=== PATIENT | female | born 1995 ===

== ENCOUNTER → 2018-02-09 | Outpatient (CLI) | payer OTHER | END | disposition home or self-care (01) | LOC: LABWHC1 08:31 | PROVIDERS: ATTEND Obstetrics & Gynecology | DX: Z34.81 Encounter for supervision of other normal pregnancy, first trimester (principal); Z3A.00 Weeks of gestation of pregnancy not specified | CPT/HCPCS: 36415; 84702 ==

== ENCOUNTER → 2018-03-20 | Outpatient (CLI) | payer OTHER ==
[2018-03-20 16:32] LABS: HGB 13.5 gm/dL (11.4-16.0); MCH 30.9 pg (25.0-35.0); MCHC 34.6 g/dL (31.0-37.0); MCV 89.3 fL (80.0-100.0); Mean Platelet Volume 7.5; Platelet Count 202 k/uL (150-450); RBC 4.37 m/uL (3.80-5.40); RDW 11.7 % (11.5-15.5); WBC 10.8 k/uL (3.8-10.6)
[2018-03-20 16:49] LABS: Glucose 82 mg/dL (74-99)
[2018-03-21 06:21] LABS: Toxoplasma Antibody (IgG) <3.0 IU/mL (<7.2); Toxoplasma Antibody (IgM) <3.0 AU/mL (<8.0)
--- NOTE | 2018-03-21 07:06 | US ---
EXAMINATION TYPE: Transabdominal DATE OF EXAM: 02/13/18 COMPARISON: NONE CLINICAL HISTORY: Z36 Confirm Dates; G1, prior smoker EXAM PERFORMED: Transabdominal (TA) EXAM MEASUREMENTS: GESTATIONAL AGE / DATING Physician Established: Not yet established Dates by LMP: (11 weeks/2 days) EDC: 10/07/2018 Dates by First Scan: No previous this is first scan Dates by Current Scan for: 8 weeks/1 day) EDC: 10/29/2018 MATERNAL ANATOMY Uterus: 10.3 x 6.2 x 5.5cm Right Ovary: 2.6 x 3.0 x 1.9cm Left Ovary: 3.7 x 3.1 x 3.0cm Post CDS / Adnexa: wnl Presence of free fluid: no Presence of corpus luteal cyst: within the left ovary = 3.3 x 2.4 x 2.5cm with peripheral ring of col or flow. Presence of subchorionic bleed: no GESTATION / SURVEY CRL: 1.7cm (8 weeks/1 day) Yolk Sac (normal less than 6mm): 4.0mm Heart Rate: 172 bpm Rhythm: Normal IUP: Live IUP Date of LMP: 12/31/2017 Beta HcG (if available): NA Single, live IUP, 8 weeks/1 day, EDC: 10/29/2018, HR 172bpm. IMPRESSION: Single live intrauterine with a sonographic age of 8 weeks and 1 day and estimated date of delivery of 10/19/2018. Note the sonographic age is discordant with the provided menstrual age.
[2018-03-21 21:15] LABS: HIV AB P24 Non-Reactive (Non-Reactive); HIV P24 AG Non-Reactive (Non-Reactive)
== END | disposition home or self-care (01) ==
LOC: RADUSWWP 15:38
PROVIDERS: ATTEND Obstetrics & Gynecology
DX: O26.811 Pregnancy related exhaustion and fatigue, first trimester (principal); Z3A.08 8 weeks gestation of pregnancy
CPT/HCPCS: 36415; 76801; 82565; 82947; 85027; 86762; 86777; 86778; 86780; 86850; 86900; 86901; 87340; 87390

== ENCOUNTER → 2018-05-15 | Outpatient (CLI) | payer OTHER | END | disposition home or self-care (01) | LOC: LABWHC1 09:53 | PROVIDERS: ATTEND Obstetrics & Gynecology | DX: Z34.81 Encounter for supervision of other normal pregnancy, first trimester (principal) | CPT/HCPCS: 36415 ==

== ENCOUNTER 2018-10-06 09:05 | Outpatient (CLI) | payer OTHER ==
[2018-10-06 09:57] VITALS: BP 111/75; PULSE 92; RESP 18; TEMP 98
--- NOTE | 2018-10-06 11:38 | P.MSEPDOC ---
Presenting Problems - Arrival Data Date of Arrival on Unit: 10/06/18 Time of Arrival on Unit: 09:05 Mode of Transport: Ambulatory - Complaint OB-Reason for Admission/Chief Complaint: Other Comment: Constipation x3 weeks Medical History - Information : 1 Para: 0 Term: 0 : 0 Abortions: Spontaneous or Elective: 0 Number of Living Children: 0 - Gestational Age Gestational Age by LINDA (wks/days): 36 Weeks and 5 Days - History Complications: Hx. Substance Abuse Comment: marijuana Review of Systems - Review of Systems Constitutional: No problems Breast: No problems ENT: No problems Cardiovascular: No problems Respiratory: No problems Gastrointestinal: Constipation Genitourinary: No problems Musculoskeletal: No problems Neurological: No problems Skin: No problems Vital Signs - Temperature Temperature: 98.0 F Temperature Source: Temporal Artery Scan - Pulse Right Pulse Oximetery Pulse Rate: 92 Pulse Assessment Method: Pulse Oximetry - Respirations Respiratory Rate: 18 Oxygen Delivery Method: Room Air O2 Sat by Pulse Oximetry: 99 - Blood Pressure Right Arm Blood Pressure: 111/75 Blood Pressure Mean: 87 Blood Pressure Source: Automatic Cuff Medical Screen Scoring (Pre) - Cervical Exam Dilation: Exam Deferred Effacement: Exam Deferred - Uterine Contractions Frequency: > 5 minutes apart = 1 Duration: N/A Intensity: N/A - Maternal Vital Signs Maternal Temperature: N/A Maternal Blood Pressure: N/A Signs of Preeclampsia: N/A Maternal Respirations: N/A - Pain Assessment Pain Location and Character: Lower, Abdomen Pain Scale Used: Numeric (1 - 10) Pain Intensity: 7 Pain Management Goal: 2 Pain Description: *Acute, Sore Pain Radiation Location: none Pain Frequency: Constant Pain Duration: 3 Pain Duration Units: weeks Pain Behavior: Moving Slowly, Vocalization Effects of Pain: none Pain Aggravating Factors: None Pharmacological Interventions: Discuss Pain Med Options - Maternal Trauma Maternal Trauma: N/A - Assessment Baseline FHR: 140 Heart Rate - NICHD Category: Category I (Normal) = 0 NST: Reactive Position: N/A Station: N/A - Total Score Total Score (Pre): 1 - Level of Risk Level of Risk: Low (0-5) Physician Notification (Pre) - Physician Notified Physician Notified Date: 10/06/18 Physician Notified Time: 09:45 Physician/Practitioner Notifed:: Dr Harris Spoke With: Dr Harris New Order Received: Yes - Notification Comment Comment: Pt here for constipation x3 weeks. pt cleared obstetrically, pt to er for further evaluation per Dr Harris. Disposition - Disposition OB Disposition: Discharge to home, Written follow up instructions reviewed Discharge Date: 10/06/18 Discharge Time: 09:48 I agree with the RN Medical Screening Exam: Yes Risk & Benefit of care provided described in d/c instruction: Yes Diagnosis: CONSTIPATION, UNSPECIFIED
== END 2018-10-06 09:48 | disposition home or self-care (01) ==
LOC: FBPOP 09:05
PROVIDERS: ATTEND Obstetrics & Gynecology
DX: O99.611 Diseases of the digestive system complicating pregnancy, first trimester (principal); K59.00 Constipation, unspecified; Z3A.36 36 weeks gestation of pregnancy
CPT/HCPCS: 59025; G0463; 99213

== ENCOUNTER 2018-10-06 09:53 | Emergency (ER) | payer OTHER ==
[2018-10-06 10:16] VITALS: BP 100/65; PULSE 63; RESP 18; TEMP 98.1
[2018-10-06 10:40] LABS: Appearance,Urine Clear (Clear); Bilirubin,Urine Negative (Negative); Blood,Urine Negative (Negative); Color,Urine Light Yellow; Glucose,Urine (UA) Negative (Negative); Ketones,Urine Negative (Negative); Leukocyte Esterase,Urine Negative (Negative); Nitrite,Urine Negative (Negative); Protein,Urine Negative (Negative); Specific Gravity,Urine 1.009 (1.001-1.035); Urobilinogen,Urine <2.0 mg/dL (<2.0)
--- NOTE | 2018-10-06 10:55 | ED ---
General Adult HPI - General Chief complaint: Abdominal Pain Stated complaint: bowel problems Source: patient Mode of arrival: ambulatory Limitations: no limitations - History of Present Illness Initial comments: Dictation was produced using [employer] dictation software. please excuse any grammatical, word or spelling errors. Chief Complaint: 23-year-old female who is approximately 36 weeks gestation presents with constipation. History of Present Illness: Patient is a 23-year-old female who is approximately 36 weeks gestation presents with constipation. Patient has been having hard small stools past 3 weeks. She has not had a normal bowel movement in approximately 3 weeks. Her constipation has been evaluated by her JOB RECRUITER. She has tried enemas and other oral agents in order to alleviate her symptoms however with persistent symptoms. Patient feels nauseous however no episodes of emesis. She does complain of pain to the bilateral flank regions. She was initially evaluated and labor and delivery were baby was evaluated and found to be stable. The ROS documented in this emergency department record has been reviewed and confirmed by me. Those systems with pertinent positive or negative responses have been documented in the HPI. All other systems are other negative and/or noncontributory. - Related Data Home Medications Medication Instructions Recorded Confirmed Ranitidine HCl [Zantac] 150 mg PO HS 10/06/18 10/06/18 Allergies Allergy/AdvReac Type Severity Reaction Status Date / Time No Known Allergies Allergy Verified 10/06/18 10:16 Review of Systems ROS Statement: Those systems with pertinent positive or pertinent negative responses have been documented in the HPI. ROS Other: All systems not noted in ROS Statement are negative. Past Medical History Additional Past Medical History / Comment(s): IBS, Chiari Malformation History of Any Multi-Drug Resistant Organisms: None Reported Past Surgical History: Cholecystectomy Past Psychological History: No Psychological Hx Reported Smoking Status: Never smoker Past Alcohol Use History: None Reported Past Drug Use History: None Reported General Exam - General Exam Comments Initial Comments: PHYSICAL EXAM: General Impression: Alert and oriented x3, not in acute distress HEENT: Normocephalic atraumatic, extra-ocular movements intact, pupils equal and reactive to light bilaterally, mucous membranes moist. Cardiovascular: Heart regular rate and rhythm, S1&S2 audible, no murmurs, rubs or gallops Chest: Lungs clear to auscultation bilaterally, no rhonchi, no wheeze, no rales Abdomen: Bowel sounds present, abdomen soft, non-tender, non-distended, no organomegaly, palpable uterine fundus at appropriate gestational age Musculoskeletal: Pulses present and equal in all extremities, no peripheral edema Motor: Power 5/5 bilaterally, no focal deficits noted Neurological: CN II-XII grossly intact, no focal motor or sensory deficits noted Skin: Intact with no visualized rashes Psych: Normal affect and mood Limitations: no limitations Course Vital Signs 10/06/18 10:11 Temperature 98.1 F Pulse Rate 63 Respiratory 18 Rate Blood Pressure 100/65 O2 Sat by Pulse 98 Oximetry Medical Decision Making - Medical Decision Making ED course: 23-year-old female with chief complaint of constipation. She is allegedly 36 weeks vital signs upon arrival are within acceptable limits. While waiting laboratory workup patient's water broke. There is concern that patient has rupture membranes. She is transferred back up to labor and delivery for further management. - Lab Data Lab Results 10/06/18 10/06/18 Range/Units 10:29 10:29 Urine Color Light Yellow Urine Appearance Clear (Clear) Urine pH 7.0 (5.0-8.0) Ur Specific [place] 1.009 (1.001-1.035) Urine Protein Negative (Negative) Urine Glucose (UA) Negative (Negative) Urine Ketones Negative (Negative) Urine Blood Negative (Negative) Urine Nitrite Negative (Negative) Urine Bilirubin Negative (Negative) Urine Urobilinogen <2.0 (<2.0) mg/dL Ur Leukocyte Esterase Negative (Negative) Urine HCG, Qual Detected (Not Detectd) Disposition Clinical Impression: Rupture of membranes with clear amniotic fluid Disposition: OTHER INSTITUTION NOT DEFINED Condition: Fair Is patient prescribed a controlled substance at d/c from ED?: No Referrals: Farhad Mcrae MD [Primary Care Provider] - 1-2 days Time of Disposition: 12:22 - Out of Hospital Transfer - Req. Specs Out of Hospital Transfer - Requested Specifics: Other Emergency Center (in hospital labor and delivery)
[2018-10-06 12:35] LABS: Anion Gap 6 mmol/L; Blood Urea Nitrogen 7 mg/dL (7-17); Calcium 9.1 mg/dL (8.4-10.2); Carbon Dioxide 20 mmol/L (22-30); Chloride 112 mmol/L (98-107); Glucose 67 mg/dL (74-99); Magnesium 1.8 mg/dL (1.6-2.3); Potassium 4.1 mmol/L (3.5-5.1); Sodium 138 mmol/L (137-145)
== END 2018-10-06 12:27 | disposition short-term general hospital (02) ==
LOC: EC 09:53
DX: O42.913 Preterm premature rupture of membranes, unspecified as to length of time between rupture and onset of labor, third trimester (principal); O99.613 Diseases of the digestive system complicating pregnancy, third trimester; K59.00 Constipation, unspecified; K58.9 Irritable bowel syndrome, unspecified; O99.89 Other specified diseases and conditions complicating pregnancy, childbirth and the puerperium; Q07.00 Arnold-Chiari syndrome without spina bifida or hydrocephalus; Z79.899 Other long term (current) drug therapy; Z90.49 Acquired absence of other specified parts of digestive tract; Z3A.36 36 weeks gestation of pregnancy
CPT/HCPCS: 99284 ×2; 59025; 36415; 80048; 83735; 81003; 81025; G0463; 99213

== ENCOUNTER 2018-10-06 12:23 | Outpatient (CLI) | payer OTHER ==
[2018-10-06] MEDS ORDERED: NA PHOS,M-B/NA PHOS,DI-BA 133 ML ENEMA RECTAL ONE (13:17)
[2018-10-06 14:05] VITALS: BP 118/82; PULSE 57; RESP 18
--- NOTE | 2018-10-07 12:45 | P.MSEPDOC ---
Presenting Problems - Arrival Data Date of Arrival on Unit: 10/06/18 Time of Arrival on Unit: 12:23 Mode of Transport: Ambulatory - Complaint OB-Reason for Admission/Chief Complaint: Rule Out SROM Comment: 1210 possible SROM clear fluid pt states stood up when in ER and the bed had a large wet spot. Medical History - Information : 1 Para: 0 Term: 0 : 0 Abortions: Spontaneous or Elective: 0 Number of Living Children: 0 - Gestational Age Gestational Age by LINDA (wks/days): 36 Weeks and 5 Days Review of Systems - Review of Systems Constitutional: No problems Breast: No problems ENT: No problems Cardiovascular: No problems Respiratory: No problems Gastrointestinal: Constipation Genitourinary: No problems Musculoskeletal: No problems Neurological: No problems Skin: No problems Vital Signs - Pulse Right Pulse Oximetery Pulse Rate: 57 Pulse Assessment Method: Automatic Cuff - Respirations Respiratory Rate: 18 Oxygen Delivery Method: Room Air - Blood Pressure Right Arm Blood Pressure: 118/82 Blood Pressure Mean: 94 Blood Pressure Source: Automatic Cuff Medical Screen Scoring (Pre) - Cervical Exam Dilation: 1-3 cm = 1 Effacement: More than 50% = 2 Membranes: Intact - Uterine Contractions Frequency: > 5 minutes apart = 1 Duration: N/A Intensity: N/A - Maternal Vital Signs Maternal Temperature: N/A Maternal Blood Pressure: N/A Signs of Preeclampsia: N/A Maternal Respirations: N/A - Pain Assessment Pain Location and Character: Abdomen Pain Scale Used: Numeric (1 - 10) Pain Intensity: 7 Pain Management Goal: 2 Pain Description: *Acute, Sore Pain Radiation Location: pt states due to constipation Pain Frequency: Constant Pain Duration: 3 Pain Duration Units: weeks Pain Behavior: Moving Slowly Effects of Pain: none Pain Aggravating Factors: None Pharmacological Interventions: Discuss Pain Med Options Non-Pharmacological Interventions: Reduce Environmental Stimuli - Maternal Trauma Maternal Trauma: N/A - Assessment Baseline FHR: 140 Heart Rate - NICHD Category: Category I (Normal) = 0 NST: Reactive Position: N/A Station: N/A - Total Score Total Score (Pre): 4 - Level of Risk Level of Risk: Low (0-5) Physician Notification (Pre) - Physician Notified Physician Notified Date: 10/06/18 Physician Notified Time: 13:03 Physician/Practitioner Notifed:: Dr Harris Spoke With: Dr Harris New Order Received: Yes - Notification Comment Comment: pt returned from ER for possible SROM. Disposition - Disposition OB Disposition: Discharge to home Discharge Date: 10/06/18 Discharge Time: 13:50 I agree with the RN Medical Screening Exam: Yes Risk & Benefit of care provided described in d/c instruction: Yes Diagnosis: FALSE LABOR BEFORE 37 COMPLETED WEEKS OF GEST, THIRD TRI
== END 2018-10-06 13:50 | disposition home or self-care (01) ==
LOC: FBPOP 12:23
PROVIDERS: ATTEND Obstetrics & Gynecology
DX: O47.03 False labor before 37 completed weeks of gestation, third trimester (principal); Z3A.36 36 weeks gestation of pregnancy
CPT/HCPCS: 59025; G0463; 99213

== ENCOUNTER 2018-10-23 05:40 | Inpatient (IN) | payer OTHER ==
[2018-10-23] MEDS ORDERED: LACTATED RINGERS 1,000 ML IV ONE (05:56)
[2018-10-23] MEDS ORDERED: CITRIC ACID-SODIUM CITRATE 15 ML CUP PO ONE (05:56)
[2018-10-23] MEDS ORDERED: ceFAZolin IN SWFI 2 GM/20 ML SYRINGE IVP ONE (05:56)
[2018-10-23 06:29] LABS: Basophils % (A) 0 %; Eosinophils % (A) 0 %; HGB 12.1 gm/dL (11.4-16.0); Lymphocytes # (A) 1.5 k/uL (1.0-4.8); Lymphocytes % (A) 14 %; MCH 31.2 pg (25.0-35.0); MCHC 33.7 g/dL (31.0-37.0); MCV 92.4 fL (80.0-100.0); Mean Platelet Volume 6.9; Monocytes # (A) 0.5 k/uL (0-1.0); Monocytes % (A) 5 %; Neutrophils # (A) 8.1 k/uL (1.3-7.7); Neutrophils % (A) 79 %; Platelet Count 217 k/uL (150-450); RBC 3.89 m/uL (3.80-5.40); RDW 12.3 % (11.5-15.5); WBC 10.2 k/uL (3.8-10.6)
[2018-10-23 06:31] VITALS: BMI 32.5
[2018-10-23] MEDS ORDERED: SUCCINYLCHOLINE CHLORIDE 100 MG/5 ML SYR IV ONE (08:03)
[2018-10-23] MEDS ORDERED: ONDANSETRON 4 MG/2 ML VIAL ONE (08:03)
[2018-10-23] MEDS ORDERED: fentaNYL (PF) 50 MCG/ML 2 ML AMP ONE (08:03)
[2018-10-23] MEDS ORDERED: OXYTOCIN 10 UNIT/ML 1 ML VIAL ONE (08:03)
[2018-10-23] MEDS ORDERED: KETOROLAC 30 MG/ML 1 ML VIAL ONE (08:03)
[2018-10-23] MEDS ORDERED: PROPOFOL 10 MG/ML 20 ML VIAL IV ONE (08:03)
[2018-10-23] MEDS ORDERED: DEXAMETHASONE SOD PHOS (MDV) 100 MG/10 ML VIAL ONE (08:03)
[2018-10-23] MEDS ORDERED: MIDAZOLAM 2 MG/2 ML VIAL ONE (08:03)
[2018-10-23] MEDS ORDERED: NALOXONE 0.4 MG/ML 1 ML VIAL IV PRN ×2 (08:32→08:58)
[2018-10-23] MEDS ORDERED: ZOLPIDEM 5 MG TAB PO PRN (08:32)
[2018-10-23] MEDS ORDERED: KETOROLAC 30 MG/ML 1 ML VIAL IVP PRN (08:32)
[2018-10-23] MEDS ORDERED: diphenhydrAMINE 50 MG CAP PO PRN (08:32)
[2018-10-23] MEDS ORDERED: diphenhydrAMINE 25 MG CAP PO PRN (08:32)
[2018-10-23] MEDS ORDERED: SIMETHICONE 80 MG CHEWABLE PO PRN (08:32)
[2018-10-23] MEDS ORDERED: ONDANSETRON 4 MG/2 ML VIAL IVP PRN ×2 (08:32→08:59)
[2018-10-23] MEDS ORDERED: ACETAMINOPHEN TAB 325 MG TAB PO PRN (08:32)
[2018-10-23] MEDS ORDERED: diphenhydrAMINE 50 MG/ML 1 ML VIAL IVP PRN ×2 (08:32)
[2018-10-23] MEDS ORDERED: METOCLOPRAMIDE 5 MG/ML 2 ML VIAL IVP PRN (08:32)
--- NOTE | 2018-10-23 08:36 | P.HPOB ---
History of Present Illness H&P Date: 10/23/18 Chief Complaint: April at term: Arnold-Chiari malformation Patient is a 23-year-old at 39 weeks gestation who arrives for primary section under general anesthetic due to Arnold-Chiari malformation. Patient has a history of Arnold-Chiari formation and seizure disorder. She is seen neurologist throughout much of her life due to same, however she is seen them sporadically. She had appointments with several neurologist during the course of some of which she was unable to make appointments with. Ultimately a discussion with one of the neurologists that she sees lead to a decision to move forward with a under general anesthetic due to her Arnold-Chiari malformation which was not deemed stable. She understood risks of brainstem herniation should she pushed or have a spinal epidural anesthetic therefore a general anesthetic was scheduled. She did meet with anesthesia and all questions were answered for her prior to proceeding to the operating room. Risks also included but were not limited to bleeding and infection as well as damage to bladder, bowel, vascular injuries, nerve injuries and ureteral damage. She also uses marijuana daily. Multiple discussions were held with the patient trying to get her to quit. However she declines and states that she is clinically to smoke marijuana throughout the . Urine drug screens were positive for same. Past Medical History Past Medical History: GERD/Reflux Additional Past Medical History / Comment(s): ARNOLD CHIARI MALFORMATION- STATES IT CAUSES TINGLING IN HER LIMBS, VISION CHANGES, HEADACHE AND BACK PAIN. , STATES IBS WITH SEVERE CONSTIPATION., STATES DOUBLE URETERS ON THE RIGHT WITH HX OF UTI'S. - SCHEDULED History of Any Multi-Drug Resistant Organisms: None Reported Past Surgical History: Cholecystectomy Additional Past Surgical History / Comment(s): COLONOSCOPY Past Anesthesia/Blood Transfusion Reactions: No Reported Reaction, Family History of Problems w/ Anesthesia Additional Past Anesthesia/Blood Transfusion Reaction / Comment(s): STATES HER MOTHER STOPPED BREATHING Past Psychological History: Anxiety, Depression Smoking Status: Former smoker Past Alcohol Use History: None Reported Additional Past Alcohol Use History / Comment(s): QUIT SMOKING 3 YRS AGO., SMOKED FOR 1 YEAR. Past Drug Use History: None Reported - Past Family History Mother Family Medical History: No Reported History Medications and Allergies Home Medications Medication Instructions Recorded Confirmed Type Ranitidine HCl [Zantac] 150 mg PO BID PRN 10/06/18 10/23/18 History Stool Softner Otc 2 tab PO DAILY PRN 10/22/18 10/23/18 History Allergies Allergy/AdvReac Type Severity Reaction Status Date / Time No Known Allergies Allergy Verified 10/22/18 15:05 Exam Osteopathic Statement: *. No significant issues noted on an osteopathic structural exam other than those noted in the History and Physical/Consult. Vital Signs Temp Pulse Resp BP Pulse Ox 10/23/18 05:51 97.4 F L 85 16 116/73 99 Intake and Output 10/22/18 10/23/18 10/23/18 22:59 06:59 14:59 Other: Weight 94.347 kg 94.347 kg - OBG Physical Exam Breast: both: normal (no masses) Abdomen: bowel sounds normal, no diffuse tenderness, no bruit present, no guarding noted, no hepatomegaly, no splenomegaly, no mass Vulva: both: normal Vagina: normal moisture, no discharge Cervix: no lesion, no discharge Uterus: normal size, normal contour Adnexa: both: normal Anus/Rectum: normal perianal skin, no rectal mass, no hemorrhoids, heme negative Results Result Diagrams: 10/23/18 06:20 Abnormal Lab Results - Last 24 Hours (Table) 10/23/18 Range/Units 06:20 Neutrophils # 8.1 H (1.3-7.7) k/uL
--- NOTE | 2018-10-23 08:39 | P.OP ---
Date of Procedure: 10/23/18 Preoperative Diagnosis: Intrauterine at term: Arnold-Chiari malformation Postoperative Diagnosis: Same Procedure(s) Performed: Primary low-transverse section Anesthesia: SONDRA Surgeon: Carlos Enrique Rojas Laminated Plastics Assembler And Gluer #1: Michelle Hurst Estimated Blood Loss (ml): 600 IV fluids (ml): 700 Urine output (ml): 200 Pathology: other (Placenta) Condition: stable Disposition: floor Operative Findings: Male scores of 9 and 9 at one and 5 minutes respectively and weight of 7 lbs. 15 oz. Description of Procedure: Patient was taken to the operating suite where a general anesthetic was found be adequate. She was prepped and draped in the normal sterile fashion and placed in the dorsal supine position with leftward tilt. Initially a Pfannenstiel skin incision was made and this incision was then carried through to the underlying layer of the fascia with a second knife. Fascia was then nicked in the midline and this opening was extended laterally with Ramirez scissors. Superior and inferior aspect of this incision were then grasped tented up and bluntly and sharply dissected off the rectus muscles. Rectus muscles were then divided in the midline and blunt dissection through the peritoneum was made. This opening was then extended superiorly and inferiorly with good visualization of both bowel bladder. Bladder blade was then placed and the bladder flap identified. It was entered sharply with Metzenbaum scissors carried across face uterus and bluntly dissected out of the operative field. Knife was then used to incise uterus. Hemostat was used to fully develop the incision and then it was extended bluntly. Head was then atraumatically delivered with clear fluid noted. Anterior and posterior shoulders were easily delivered followed by the remainder the baby. Umbilical cord was then allowed to pulsate for 30 seconds prior to clamping and cutting an nursery personnel was present to assume care. Placenta was then delivered intact and Pitocin was added to the IV. Uterus was then exteriorized cleared of clots and debris and closed in 2 layers with 0 Vicryl suture. Once hemostasis was obtained blood and debris was suctioned from the posterior cul-de -sac and the uterus was reinserted into the abdomen. Peritoneal layer was then closed Lobac suture. Fascial layer was closed with 0 Vicryl suture. One layer of 3-0 Vicryl was placed in deep subcuticular tissues to reapproximate the skin and then the skin was closed with 3-0 Vicryl subcuticularly. Sponge, lap, needle counts were all correct 2. Patient was then taken to the recovery room in stable and satisfactory condition.
[2018-10-23] MEDS: HYDROmorphone PCA 5 MG/25 ML SYRINGE IV PRN ×2 (09:21→19:39)
[2018-10-23 17:47] LABS: Urine Alcohol Negative (Negative); Urine Barbiturate Negative (Negative); Urine Cocaine Negative (Negative); Urine Methadone Negative (Negative); Urine Opiates Negative (Negative); Urine Phencyclidine Negative (Negative)
[2018-10-23] MEDS: LACTATED RINGERS 1,000 ML IV SCH (19:21)
[2018-10-23] MEDS: SENNOSIDES-DOCUSATE SODIUM 1 EACH TAB PO SCH (19:53)
[2018-10-23 23:59] VITALS: RESP 16
[2018-10-24] MEDS: LACTATED RINGERS 1,000 ML IV SCH (06:08)
[2018-10-24] MEDS: SENNOSIDES-DOCUSATE SODIUM 1 EACH TAB PO SCH ×2 (08:03→20:02)
[2018-10-24 08:06] LABS: Basophils % (A) 0 %; Eosinophils # (A) 0.1 k/uL (0-0.7); Eosinophils % (A) 1 %; HCT 26.4 % (34.0-46.0); Lymphocytes # (A) 2.1 k/uL (1.0-4.8); Lymphocytes % (A) 21 %; MCH 32.3 pg (25.0-35.0); MCHC 34.6 g/dL (31.0-37.0); MCV 93.3 fL (80.0-100.0); Mean Platelet Volume 7.4; Monocytes # (A) 0.7 k/uL (0-1.0); Monocytes % (A) 7 %; Neutrophils # (A) 7.3 k/uL (1.3-7.7); Neutrophils % (A) 71 %; Platelet Count 190 k/uL (150-450); RBC 2.83 m/uL (3.80-5.40); RDW 12.4 % (11.5-15.5); WBC 10.4 k/uL (3.8-10.6)
[2018-10-24 08:08] LABS: HGB 9.1 gm/dL (11.4-16.0)
--- NOTE | 2018-10-24 08:55 | P.PNOBGPC ---
Subjective - Subjective Principal diagnosis: Postop day 1 Interval history: Patient is doing very well postop day 1. She is ambulating, voiding and she is tolerating her diet. She voices no complexes morning other than some mild tenderness around her incision. Her vital signs are otherwise stable and she is afebrile. Heart regular, lungs clear, extremities without pain. Abdomen soft and uterus is firm. Incision is otherwise intact. Assessment postop day 1. Plan continue current care. Patient reports: Reports appetite normal, Reports voiding normally, Reports pain well controlled, Reports ambulating normally Perkins: doing well Objective - Vital Signs Latest vital signs: Vital Signs Temp Pulse Resp BP Pulse Ox 10/24/18 07:59 99.1 F 76 16 108/57 10/24/18 04:00 99.0 F 83 16 109/58 10/23/18 23:56 98.4 F 91 16 131/73 10/23/18 20:00 97.2 F L 69 18 106/49 98 10/23/18 16:00 97.2 F L 75 18 105/60 97 10/23/18 12:00 97.8 F 57 L 18 116/69 97 10/23/18 10:42 71 18 120/62 99 10/23/18 10:12 98.6 F 65 18 128/58 100 10/23/18 10:01 113/59 10/23/18 09:42 72 18 100 10/23/18 09:27 67 18 131/73 100 10/23/18 09:12 65 18 112/59 100 10/23/18 08:58 100 10/23/18 08:57 98.2 F 65 18 114/65 100 Intake and Output 10/23/18 10/24/18 10/24/18 22:59 06:59 14:59 Intake Total 600 Output Total 1200 Balance 600 -1200 Intake: Intake, IV Titration 600 Amount Lactated Ringers 1,000 ml 600 @ 125 mls/hr IV .Q8H [facility] Rx#:[id number] Output: Urine 1200 - Labs Labs: Abnormal Lab Results - Last 24 Hours (Table) 10/23/18 10/24/18 Range/Units 07:53 07:25 RBC 2.83 L (3.80-5.40) m/uL Hgb 9.1 L D (11.4-16.0) gm/dL Hct 26.4 L (34.0-46.0) % U Cannabinoids Screen Positive H (Negative) ng/mL
[2018-10-24] MEDS: HYDROcodone/APAP 7.5-325MG 1 EACH TAB PO PRN ×2 (09:58→21:06)
[2018-10-24] MEDS: IBUPROFEN 600 MG TAB PO PRN (15:52)
[2018-10-25] MEDS: IBUPROFEN 600 MG TAB PO PRN ×2 (02:59→12:16)
[2018-10-25 07:56] VITALS: BP 103/58; PULSE 67; TEMP 98.4
[2018-10-25] MEDS: SENNOSIDES-DOCUSATE SODIUM 1 EACH TAB PO SCH (08:02)
[2018-10-25] MEDS: HYDROcodone/APAP 7.5-325MG 1 EACH TAB PO PRN (08:02)
--- NOTE | 2018-10-25 09:50 | P.DS ---
Providers Date of admission: 10/23/18 05:40 Expected date of discharge: 10/25/18 Attending physician: Carlos Enrique Rojas Primary care physician: Stated None Hospital Course: Patient is doing very well post op day 2. She is ambulating, voiding, and she is tolerating her diet. She voices no complaints and is requesting discharge home today. Vital signs are stable and afebrile. Heart regular, lungs clear, extremities are without pain. Abdomen is soft incisions clean dry and intact. She does have bowel sounds. Assessment postop day 2. Plan discharged home with instructions follow up with me in 1 weeks. Discharge instructions were thoroughly reviewed with the patient. Prescription for Motrin and [place] were for into the pharmacy. All other questions are answered for her she'll follow up with me in 1 week. Patient Condition at Discharge: Good Plan - Discharge Summary Discharge Rx Participant: Yes New Discharge Prescriptions: New HYDROcodone/APAP 5-325MG [[place] 5-325] 1 tab PO Q4HR PRN #20 tab PRN Reason: Pain Ibuprofen [Motrin] 600 mg PO Q6HR PRN #30 tab PRN Reason: Pain No Action Ranitidine HCl [Zantac] 150 mg PO BID PRN PRN Reason: Heartburn Stool Softner Otc 2 tab PO DAILY PRN PRN Reason: Constipation Discharge Medication List Ranitidine HCl [Zantac] 150 mg PO BID PRN 10/06/18 [History] Stool Softner Otc 2 tab PO DAILY PRN 10/22/18 [History] HYDROcodone/APAP 5-325MG [[place] 5-325] 1 tab PO Q4HR PRN #20 tab 10/25/18 [Rx] Ibuprofen [Motrin] 600 mg PO Q6HR PRN #30 tab 10/25/18 [Rx] Follow up Appointment(s)/Referral(s): Carlos Enrique Rojas DO [Doctor of Osteopathic Medicine] - 1 Week Activity/Diet/Wound Care/Special Instructions: No heavy lifting, limit stairs and driving, and pelvic rest. If any high temperatures, heavy bleeding, or severe pain call my office. No tub pass for 2 weeks. Please keep the incision clean and dry and wash at 1-2 times every day. Discharge Disposition: HOME SELF-CARE
== END 2018-10-25 13:20 | disposition home or self-care (01) | DRG 788 ==
LOC: 4FBP 05:40
PROVIDERS: ADMIT Obstetrics & Gynecology; ATTEND Obstetrics & Gynecology
PROC: 10D00Z1 Extraction of Products of Conception, Low, Open Approach (ICD-10-PCS; principal; 2018-10-23 08:11)
DX: O99.354 Diseases of the nervous system complicating childbirth (principal); O99.324 Drug use complicating childbirth; Z37.0 Single live birth; Z3A.39 39 weeks gestation of pregnancy; Q07.00 Arnold-Chiari syndrome without spina bifida or hydrocephalus; K21.9 Gastro-esophageal reflux disease without esophagitis; O99.62 Diseases of the digestive system complicating childbirth; Z87.440 Personal history of urinary (tract) infections; Z87.891 Personal history of nicotine dependence; F12.90 Cannabis use, unspecified, uncomplicated
CPT/HCPCS: 80306; 85025; 86850; 86900; 86901; 88307

== ENCOUNTER 2019-12-20 18:33 | Emergency (ER) | payer OTHER ==
[2019-12-20] MEDS ORDERED: MORPHINE SULFATE 4 MG/ML SYRINGE IVP STA (18:49)
--- NOTE | 2019-12-20 19:14 | ED ---
General Adult HPI <Branden Bauer - Last Filed: 12/20/19 20:50> - General Source: patient, RN notes reviewed Mode of arrival: ambulatory Limitations: no limitations <Kade Mario - Last Filed: 12/21/19 01:15> - General Chief complaint: Extremity Injury, Upper Stated complaint: lt arm injury Time Seen by Provider: 12/20/19 18:40 - History of Present Illness Initial comments: 24-year-old female presents to the emergency department for a chief complaint of left elbow pain. Patient states that she tripped and fell onto a left open hand. Patient states she cannot move her elbow. Denies any loss of sensation in the left hand. Patient able to move all fingers. Patient denies any other injuries.Patient has no other complaints at this time including shortness of breath, chest pain, abdominal pain, nausea or vomiting, headache, or visual changes. (Kade Mario) - Related Data Home Medications Medication Instructions Recorded Confirmed Ranitidine HCl [Zantac] 150 mg PO BID PRN 10/06/18 10/23/18 Stool Softner Otc 2 tab PO DAILY PRN 10/22/18 10/23/18 Previous Rx's Medication Instructions Recorded HYDROcodone/APAP 5-325MG [[place] 1 tab PO Q4HR PRN #20 tab 10/25/18 5-325] Ibuprofen [Motrin] 600 mg PO Q6HR PRN #30 tab 10/25/18 HYDROcodone/APAP 5-325MG [[place] 1 tab PO Q6HR PRN #10 tab 12/20/19 5-325] Allergies Allergy/AdvReac Type Severity Reaction Status Date / Time No Known Allergies Allergy Verified 12/20/19 18:38 Review of Systems ROS Other: All systems not noted in ROS Statement are negative. <Branden Bauer - Last Filed: 12/20/19 20:50> ROS Other: All systems not noted in ROS Statement are negative. <Kade Mario - Last Filed: 12/21/19 01:15> ROS Statement: Those systems with pertinent positive or pertinent negative responses have been documented in the HPI. 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 - SCHEDULED History of Any Multi-Drug Resistant Organisms: None Reported Past Surgical History: Cholecystectomy Additional Past Surgical History / Comment(s): COLONOSCOPY Past Anesthesia/Blood Transfusion Reactions: No Reported Reaction, Family History of Problems w/ Anesthesia Additional Past Anesthesia/Blood Transfusion Reaction / Comment(s): STATES HER MOTHER STOPPED BREATHING Past Psychological History: Anxiety, Depression Smoking Status: Former smoker Past Alcohol Use History: None Reported Past Drug Use History: None Reported - Past Family History Mother Family Medical History: No Reported History <Kade Mario P - Last Filed: 12/21/19 01:15> General Exam Limitations: no limitations General appearance: alert, in no apparent distress Head exam: Present: atraumatic, normocephalic, normal inspection Eye exam: Present: normal appearance, PERRL, EOMI. Absent: scleral icterus, conjunctival injection, periorbital swelling ENT exam: Present: normal exam, mucous membranes moist Neck exam: Present: normal inspection, full ROM. Absent: tenderness, meningismus, lymphadenopathy Respiratory exam: Present: normal lung sounds bilaterally. Absent: respiratory distress, wheezes, rales, rhonchi, stridor Cardiovascular Exam: Present: regular rate, normal rhythm, normal heart sounds. Absent: systolic murmur, diastolic murmur, rubs, gallop, clicks Extremities exam: Present: normal capillary refill (Capillary refill less than 2 seconds, radial pulse 2+ and left upper extremity.), joint swelling (Swelling noted to left elbow. However compartment soft.), other (Patient has deformity noted to the left elbow.). Absent: full ROM (Full range motion of the fingers of the left hand as well as left wrist however patient unable to move her left elbow. Pt able to make okay sign, abduction and adduction of fingers and flex and extend the left wrist.), tenderness, pedal edema, calf tenderness <Kade Mario P - Last Filed: 12/21/19 01:15> Course <Kade Mario P - Last Filed: 12/21/19 01:15> Vital Signs 12/20/19 12/20/19 12/20/19 18:35 19:38 20:10 Temperature 98.5 F 98 F Pulse Rate 80 79 81 Respiratory 18 18 18 Rate Blood Pressure 120/80 118/64 120/62 O2 Sat by Pulse 99 100 100 Oximetry 12/20/19 12/20/19 12/20/19 20:20 20:25 20:30 Temperature Pulse Rate 86 105 H 84 Respiratory 18 18 18 Rate Blood Pressure 112/73 127/88 117/64 O2 Sat by Pulse 100 100 98 Oximetry 12/20/19 12/20/19 12/20/19 20:40 20:55 21:10 Temperature Pulse Rate 87 92 68 Respiratory 18 18 17 Rate Blood Pressure 115/66 110/85 123/84 O2 Sat by Pulse 98 98 100 Oximetry 12/20/19 12/20/19 12/20/19 21:30 22:00 22:46 Temperature 98 F Pulse Rate 80 74 75 Respiratory 18 18 18 Rate Blood Pressure 126/82 112/66 111/76 O2 Sat by Pulse 100 100 100 Oximetry - Reevaluation(s) Reevaluation #1: 12/20/19 19:14 I did speak with Fabio zamudio about dislocation of left elbow with associated radial head fracture. At this time he recommends reducing the left elbow and placing patient in a 90 degree posterior spint (Kade Mario) Procedures - Orthopedic Joint Reduction Joint #1 Consent Obtained: verbal consent Side: left Joint Reduction Location: elbow Analgesia: procedural sedation Technique Used: traction/counter-traction Post-Reduction Neuro Exam: intact Post-Reduction Vascular Exam: intact Post Reduction X-Ray Obtained: Yes Post Reduction X-Ray Results: reduced Splint Applied: Yes Patient Tolerated Procedure: well - Procedural Sedation Procedural Sedation Start Time: 20:26 Procedural Sedation Stop Time: 20:51 Indications: fracture/dislocation reduction ASA Class: I Mallampati Airway Score: 2 Preparation: threat monitoring analyst applied, pulse oximeter, supplemental O2 applied IV Etomidate Dose (mgs): 20 Complications: none <Branden Baure - Last Filed: 12/20/19 20:50> - Orthopedic Splinting/Casting Injury #1 Side: left Upper Extremity Injury Location: long arm Upper Extremity Immobilizer: posterior splint <Kade Mario - Last Filed: 12/21/19 01:15> Medical Decision Making <Fabiano,Kade P - Last Filed: 12/21/19 01:15> - Medical Decision Making Patient presents for left elbow pain after foosh injury. There is deformity noted of the elbow. Compartments are soft. Radial pulses 2+, capillary refill is brisk and less than 2 seconds. Patient able to flex and extend the left wrist. Patient able to make okay sign, strong the thumb AB duction and adduction. Sensation intact in all fingers. Patient has full strength with abduction and adduction of the fingers. Neurovascular status intact. X-ray was obtained of the left elbow which shows a posterior fracture dislocation of the elbow joint. There is transverse fracture through the neck of the radial head with angulation of the fragment. Discussed this case with Fabio zamudio she spoke with his attending. They recommend reducing the elbow. This was performed with Dr. Bauer. Elbow x-ray postreduction did reveal an anatomic reduction however there is comminuted fracture of the neck of the radial head with anterior fragment displaced 5 mm. Discussed this with Fabio CONLEY, recommends contacting or so trauma for further management. I did speak with Dr. Pelayo. He recommends putting the patient in a posterior splint and sling and obtaining a computed tomography scan. This did reveal an impacted comminuted intra-articular fracture of the radial head with minimal displacement. I had technology advisor send this to [facility] Pelayo does not recommend emergent transfer as patient is neurovascularly intact. He recommends that she follow up in his office on Monday. She was given this information to contact him. She will likely have surgery on Monday. He recommends keeping this elevated with ice. Patient was discharged home with pain medication as well. I performed multiple neuro checks on the left upper extremity as well as capillary refill checks which were all within normal limits. At this time patient will return if she has any worsening symptoms otherwise will follow-up with Dr. Pelayo (Kade Mario) - Lab Data Lab Results 12/20/19 Range/Units 19:15 Urine HCG, Qual Not Detected (Not Detectd) Disposition <Branden Bauer - Last Filed: 12/20/19 20:50> Is patient prescribed a controlled substance at d/c from ED?: Yes When asked, does pt state using other controlled substances?: No If prescribed controlled substance>3 days was MAPS reviewed?: Prescribed <3 Days If opioid is for acute pain is fill amount 7 days or less?: Yes If Rx opioid, was Start Talking consent form obtained?: Yes Time of Disposition: 22:19 <Kade Mario - Last Filed: 12/21/19 01:15> Clinical Impression: Elbow dislocation, Radial head fracture Disposition: HOME SELF-CARE Condition: Good Instructions (If sedation given, give patient instructions): Elbow Dislocation (ED) Additional Instructions: Please follow-up with Dr. Pelayo. Call Monday for an appointment for Monday. You will likely have surgery Monday. Take [place] for pain. Rest ice and elevate the left elbow. Return if you have any worsening symptoms such as numbness or tingling in her left hand, loss of function in your left hand, or any other worsening symptoms.. Prescriptions: HYDROcodone/APAP 5-325MG [[place] 5-325] 1 tab PO Q6HR PRN #10 tab PRN Reason: Pain Referrals: Farhad Mcrae MD [Primary Care Provider] - 1-2 days
--- NOTE | 2019-12-20 19:38 | XR ---
EXAMINATION TYPE: XR elbow complete LT DATE OF EXAM: 12/20/2019 COMPARISON: NONE HISTORY: Pain after a fall TECHNIQUE: 3 views FINDINGS: There is posterior dislocation of the proximal radius and ulna. There is transverse fractur e through the neck of the radial head with angulation of the fragment. There is elbow joint effusion. There is posterior fat pad sign. IMPRESSION: Posterior fracture dislocation of the elbow joint. Elbow joint effusion.
--- NOTE | 2019-12-20 19:39 | XR ---
EXAMINATION TYPE: XR forearm LT DATE OF EXAM: 12/20/2019 COMPARISON: NONE HISTORY: Elbow pain TECHNIQUE: 2 views FINDINGS: There is posterior fracture dislocation of the elbow joint. Distal radius and ulna appear i ntact. Carpal bones are intact. IMPRESSION: Posterior fracture dislocation of the elbow joint.
[2019-12-20] MEDS ORDERED: ETOMIDATE 2 MG/ML 10 ML VIAL IVP STA (19:56)
[2019-12-20] MEDS ORDERED: HYDROmorphone 0.5 MG/0.5 ML SYRINGE IVP STA (20:03)
[2019-12-20 20:11] VITALS: TEMP 98
--- NOTE | 2019-12-20 20:49 | XR ---
EXAMINATION TYPE: XR elbow limited LT DATE OF EXAM: 12/20/2019 COMPARISON: Today HISTORY: Post reduction TECHNIQUE: Single view FINDINGS: A single lateral view appears to show anatomic reduction of the elbow joint. There is commi nuted fracture of the neck of the radial head with anterior fragment displaced 5 mm. IMPRESSION: Anatomic reduction.
[2019-12-20 21:56] VITALS: RESP 18
--- NOTE | 2019-12-20 22:03 | CT ---
EXAMINATION TYPE: CT elbow LT wo con DATE OF EXAM: 12/20/2019 COMPARISON: None HISTORY: Fracture CT DLP: mGycm Automated exposure control for dose reduction was used. Multiple axial sections were obtained from the level of the mid humerus to the mid radius and ulna wi thout contrast. There is comminuted fracture of the neck of the radial head. Fracture line extends to the articular s urface of the radial head. There is no dislocation. The proximal ulna is intact. Distal humerus is in tact. Major fragments of the radial head fracture are in fairly good anatomic position. There is no e vidence of a soft tissue mass. IMPRESSION: Impacted comminuted intra-articular fracture of the radial head with minimal displacement.
[2019-12-20 22:47] VITALS: BP 111/76; PULSE 75
== END 2019-12-20 22:35 | disposition home or self-care (01) ==
LOC: EC 18:33
DX: S52.121A Displaced fracture of head of right radius, initial encounter for closed fracture (principal); Q07.00 Arnold-Chiari syndrome without spina bifida or hydrocephalus; K21.9 Gastro-esophageal reflux disease without esophagitis; K58.1 Irritable bowel syndrome with constipation; Z87.891 Personal history of nicotine dependence; Z79.899 Other long term (current) drug therapy; W01.0XXA Fall on same level from slipping, tripping and stumbling without subsequent striking against object, initial encounter; Y92.009 Unspecified place in unspecified non-institutional (private) residence as the place of occurrence of the external cause; Z53.20 Procedure and treatment not carried out because of patient's decision for unspecified reasons
CPT/HCPCS: 81025; 73070; 73080; 73090; 73200; 99284; 24655; 99152; 96374; L1830; L3670; J2270

== ENCOUNTER 2020-01-10 14:10 | Emergency (ER) | payer OTHER ==
[2020-01-10 14:15] VITALS: BP 117/75; PULSE 103; RESP 20; TEMP 98.1
--- NOTE | 2020-01-10 14:47 | ED ---
General Adult HPI - General Chief complaint: Extremity Problem,Nontraumatic Stated complaint: needs cast off Time Seen by Provider: 01/10/20 14:19 Source: patient, RN notes reviewed Mode of arrival: ambulatory Limitations: no limitations - History of Present Illness Initial comments: 24-year-old female presents to the emergency department for a chief complaint of cast removal. Patient states that she had a "extensive surgery" on the left elbow 2 weeks ago. States she was supposed to follow-up with her orthopedic surgeon yesterday but missed the appointment. States that she called there today and they could not see her until the end of January. When she stated that she was going to take her cast off herself office staff at the orthopedic office said she should go to the emergency department. Patient states she presents today for cast removal. She denies any pain or swelling tingling or otherwise alarming symptoms in the left arm. States it feels completely normally.Patient has no other complaints at this time including shortness of breath, chest pain, abdominal pain, nausea or vomiting, headache, or visual changes. - Related Data Home Medications Medication Instructions Recorded Confirmed Ranitidine HCl [Zantac] 150 mg PO BID PRN 10/06/18 10/23/18 Stool Softner Otc 2 tab PO DAILY PRN 10/22/18 10/23/18 Previous Rx's Medication Instructions Recorded HYDROcodone/APAP 5-325MG [[place] 1 tab PO Q4HR PRN #20 tab 10/25/18 5-325] Ibuprofen [Motrin] 600 mg PO Q6HR PRN #30 tab 10/25/18 HYDROcodone/APAP 5-325MG [[place] 1 tab PO Q6HR PRN #10 tab 12/20/19 5-325] Allergies Allergy/AdvReac Type Severity Reaction Status Date / Time No Known Allergies Allergy Verified 01/10/20 14:14 Review of Systems ROS Statement: Those systems with pertinent positive or pertinent negative responses have been documented in the HPI. ROS Other: All systems not noted in ROS Statement are negative. 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 - SCHEDULED History of Any Multi-Drug Resistant Organisms: None Reported Past Surgical History: Cholecystectomy Additional Past Surgical History / Comment(s): COLONOSCOPY Past Anesthesia/Blood Transfusion Reactions: No Reported Reaction, Family History of Problems w/ Anesthesia Additional Past Anesthesia/Blood Transfusion Reaction / Comment(s): STATES HER M OTHER STOPPED BREATHING Past Psychological History: Anxiety, Depression Smoking Status: Former smoker Past Alcohol Use History: Occasional Past Drug Use History: Marijuana - Past Family History Mother Family Medical History: No Reported History General Exam Limitations: no limitations General appearance: alert, in no apparent distress Head exam: Present: atraumatic, normocephalic, normal inspection Eye exam: Present: normal appearance, PERRL, EOMI. Absent: scleral icterus, conjunctival injection, periorbital swelling ENT exam: Present: normal exam, mucous membranes moist Neck exam: Present: normal inspection, full ROM. Absent: tenderness, meningismus, lymphadenopathy Respiratory exam: Present: normal lung sounds bilaterally. Absent: respiratory distress, wheezes, rales, rhonchi, stridor Cardiovascular Exam: Present: regular rate, normal rhythm, normal heart sounds. Absent: systolic murmur, diastolic murmur, rubs, gallop, clicks Extremities exam: Present: other (Long-arm splint is in place. Neurovascular status is intact in the left upper extremity. Capillary refill is less than 2 seconds in all digits. Full range motion of the left hand. Sensation is intact in the left upper extremity including all digits of the left hand.) Course Vital Signs 01/10/20 14:11 Temperature 98.1 F Pulse Rate 103 H Respiratory 20 Rate Blood Pressure 117/75 O2 Sat by Pulse 98 Oximetry Medical Decision Making - Medical Decision Making Neurovascular status intact in the left upper extremity. Patient presents for nonemergent cast removal after an extensive surgery following a fracture dislocation of the left elbow joint a few weeks ago. I discussed this case with Dr. Macedo. At this time we do not feel comfortable removing this postsurgical splint. We recommend she follow up with orthopedic surgeon for non-emergency cast removal and return if she has any worsening symptoms. Disposition Clinical Impression: Well adult health check, Elbow fracture, left Disposition: HOME SELF-CARE Condition: Good Instructions (If sedation given, give patient instructions): Elbow Fracture (ED) Additional Instructions: Please call Dr. Pelayo's office on Monday. If you start to have any worsening symptoms such as increased pain or numbness or tingling in the left hand return to the emergency department. Is patient prescribed a controlled substance at d/c from ED?: No Referrals: Farhad Mcrae MD [Primary Care Provider] - 1-2 days Jarod Pelayo DO [REFERRING] - 1-2 days Time of Disposition: 14:46
== END 2020-01-10 14:49 | disposition home or self-care (01) ==
LOC: EC 14:10
DX: Z46.89 Encounter for fitting and adjustment of other specified devices (principal); Z87.81 Personal history of (healed) traumatic fracture; Z98.890 Other specified postprocedural states; K21.9 Gastro-esophageal reflux disease without esophagitis; Z87.891 Personal history of nicotine dependence; Z79.899 Other long term (current) drug therapy
CPT/HCPCS: 99281

== ENCOUNTER 2020-04-20 16:15 | Emergency (ER) | payer OTHER ==
[2020-04-20 16:31] VITALS: RESP 18; TEMP 98.6
[2020-04-20 17:22] LABS: Basophils % (A) 0 %; Eosinophils # (A) 0.1 k/uL (0-0.7); Eosinophils % (A) 1 %; HCT 40.8 % (34.0-46.0); HGB 13.6 gm/dL (11.4-16.0); Lymphocytes # (A) 1.5 k/uL (1.0-4.8); Lymphocytes % (A) 16 %; MCH 29.4 pg (25.0-35.0); MCHC 33.3 g/dL (31.0-37.0); MCV 88.2 fL (80.0-100.0); Mean Platelet Volume 7.3; Monocytes # (A) 0.4 k/uL (0-1.0); Monocytes % (A) 4 %; Neutrophils % (A) 77 %; Platelet Count 257 k/uL (150-450); RBC 4.63 m/uL (3.80-5.40); RDW 13.4 % (11.5-15.5); WBC 9.1 k/uL (3.8-10.6)
[2020-04-20 17:28] LABS: Appearance,Urine Clear (Clear); Bilirubin,Urine Negative (Negative); Blood,Urine Negative (Negative); Color,Urine Light Yellow; Glucose,Urine (UA) Negative (Negative); Ketones,Urine Negative (Negative); Leukocyte Esterase,Urine Small (Negative); Mucus,Urine Rare /hpf; Nitrite,Urine Negative (Negative); PH, Urine 5.5 (5.0-8.0); Protein,Urine Negative (Negative); RBC,Urine 1 /hpf (0-5); Specific Gravity,Urine 1.011 (1.001-1.035); Squamous Epithelial Cell,Urine 1 /hpf (0-4); Urobilinogen,Urine <2.0 mg/dL (<2.0); WBC,Urine 4 /hpf (0-5)
[2020-04-20 17:36] LABS: ALT 22 U/L (4-34); AST 33 U/L (14-36); African American GFR (CKD) >90 (>60 ml/min/1.73 sqM); Albumin 4.4 g/dL (3.5-5.0); Alkaline Phosphatase 103 U/L (38-126); Anion Gap 9 mmol/L; Blood Urea Nitrogen 19 mg/dL (7-17); Calcium 9.5 mg/dL (8.4-10.2); Carbon Dioxide 24 mmol/L (22-30); Chloride 105 mmol/L (98-107); Glucose 92 mg/dL (74-99); Non-African American GFR(CKD) >90 (>60 ml/min/1.73 sqM); Potassium 4.2 mmol/L (3.5-5.1); Sodium 138 mmol/L (137-145); Total Bilirubin 0.4 mg/dL (0.2-1.3); Total Protein 7.6 g/dL (6.3-8.2)
--- NOTE | 2020-04-20 17:52 | ED ---
Abdominal Pain HPI - General Chief Complaint: Abdominal Pain Stated Complaint: lt sided abd pain Source: patient Mode of arrival: ambulatory Limitations: no limitations - History of Present Illness Initial Comments: Patient is a 25-year-old female presenting to the emergency Department with complaints of left sided upper quadrant pain for the last few days. She states today she was eating a sandwhich when she choked for a second and felt a pop in her left side. She states that she feels like she may have done something "to her spleen" or may be a "kidney infection." Patient states she also took a test a few days ago which was positive. She denies any lower a bdominal pain, vaginal bleeding, nausea, vomiting. She does admit to history of , cholecystectomy. She denies fever, chills, dysuria, hematuria. She has no further complaints. Upon arrival to the ER, her vitals are stable. - Related Data Home Medications Medication Instructions Recorded Confirmed Ranitidine HCl [Zantac] 150 mg PO BID PRN 10/06/18 10/23/18 Stool Softner Otc 2 tab PO DAILY PRN 10/22/18 10/23/18 Previous Rx's Medication Instructions Recorded HYDROcodone/APAP 5-325MG [[place] 1 tab PO Q4HR PRN #20 tab 10/25/18 5-325] Ibuprofen [Motrin] 600 mg PO Q6HR PRN #30 tab 10/25/18 HYDROcodone/APAP 5-325MG [[place] 1 tab PO Q6HR PRN #10 tab 12/20/19 5-325] Allergies Allergy/AdvReac Type Severity Reaction Status Date / Time No Known Allergies Allergy Verified 04/20/20 16:28 Review of Systems ROS Statement: Those systems with pertinent positive or pertinent negative responses have been documented in the HPI. ROS Other: All systems not noted in ROS Statement are negative. 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 - SCHEDULED History of Any Multi-Drug Resistant Organisms: None Reported Past Surgical History: Cholecystectomy Additional Past Surgical History / Comment(s): COLONOSCOPY Past Anesthesia/Blood Transfusion Reactions: No Reported Reaction, Family History of Problems w/ Anesthesia Additional Past Anesthesia/Blood Transfusion Reaction / Comment(s): STATES HER MOTHER STOPPED BREATHING Past Psychological History: Anxiety, Depression Smoking Status: Former smoker Past Alcohol Use History: Occasional Past Drug Use History: Marijuana - Past Family History Mother Family Medical History: No Reported History General Exam - General Exam Comments Initial Comments: GENERAL: Well-appearing, well-nourished and in no acute distress. HEAD: Atraumatic, normocephalic. EYES: Pupils equal round and reactive to light, extraocular movements intact, sclera anicteric, conjunctiva are normal. ENT: TMs normal, nares patent, oropharynx clear without exudates. Moist mucous membranes. NECK: Normal range of motion, supple without lymphadenopathy or JVD. LUNGS: Breath sounds clear to auscultation bilaterally and equal. No wheezes rales or rhonchi. HEART: Regular rate and rhythm without murmurs, rubs or gallops. ABDOMEN: Mild tenderness of the left upper quadrant, left lower ribs. No lower quadrant tenderness, no suprapubic tenderness. Soft, normoactive bowel sounds. No guarding, no rebound. No masses appreciated. : Deferred EXTREMITIES: Normal range of motion, no pitting or edema. No clubbing or cyanosis. NEUROLOGICAL: Normal speech, normal gait. PSYCH: Normal mood, normal affect. SKIN: Warm, Dry, normal turgor, no rashes or lesions noted. Limitations: no limitations Course Vital Signs 04/20/20 16:28 Temperature 98.6 F Pulse Rate 89 Respiratory 18 Rate Blood Pressure 121/77 O2 Sat by Pulse 100 Oximetry Medical Decision Making - Medical Decision Making Patient is a 25-year-old female presenting with left upper quadrant discomfort that have been intermittent for the past few days. Recent positive test. Vitals are stable. No lower quadrant tenderness on exam, urine no urinary complaints. Labs reveal no acute abnormality. Urine shows no signs of infection. Urine hCG was detected. I discussed with patient that her symptoms are most likely related to a muscle spasm of the left lower ribs and/or gas pains. Patient was persistent that she had done something to one of her left- sided organs. I did order a limited ultrasound which revealed no abnormalities of the spleen or left kidney. I again spoke with the patient about these findings. She is stable for discharge. She is in agreement with this plan of care. She will f/u with OBGYN. Return parameters were discussed with the patient and she verbalized understanding. - Lab Data Result diagrams: 04/20/20 17:10 04/20/20 17:10 Lab Results 04/20/20 04/20/20 04/20/20 Range/Units 17:10 17:10 17:10 WBC 9.1 (3.8-10.6) k/uL RBC 4.63 (3.80-5.40) m/uL Hgb 13.6 (11.4-16.0) gm/dL Hct 40.8 (34.0-46.0) % MCV 88.2 (80.0-100.0) fL MCH 29.4 (25.0-35.0) pg MCHC 33.3 (31.0-37.0) g/dL RDW 13.4 (11.5-15.5) % Plt Count 257 (150-450) k/uL Neutrophils % 77 % Lymphocytes % 16 % Monocytes % 4 % Eosinophils % 1 % Basophils % 0 % Neutrophils # 7.0 (1.3-7.7) k/uL Lymphocytes # 1.5 (1.0-4.8) k/uL Monocytes # 0.4 (0-1.0) k/uL Eosinophils # 0.1 (0-0.7) k/uL Basophils # 0.0 (0-0.2) k/uL Sodium (137-145) mmol/L Potassium (3.5-5.1) mmol/L Chloride (98-107) mmol/L Carbon Dioxide (22-30) mmol/L Anion Gap mmol/L BUN (7-17) mg/dL Creatinine (0.52-1.04) mg/dL Est GFR (CKD-EPI)AfAm (>60 ml/min/1.73 sqM) Est GFR (CKD-EPI)NonAf (>60 ml/min/1.73 sqM) Glucose (74-99) mg/dL Calcium (8.4-10.2) mg/dL Total Bilirubin (0.2-1.3) mg/dL AST (14-36) U/L ALT (4-34) U/L Alkaline Phosphatase (38-126) U/L Total Protein (6.3-8.2) g/dL Albumin (3.5-5.0) g/dL Urine Color Light Yellow Urine Appearance Clear (Clear) Urine pH 5.5 (5.0-8.0) Ur Specific [place] 1.011 (1.001-1.035) Urine Protein Negative (Negative) Urine Glucose (UA) Negative (Negative) Urine Ketones Negative (Negative) Urine Blood Negative (Negative) Urine Nitrite Negative (Negative) Urine Bilirubin Negative (Negative) Urine Urobilinogen <2.0 (<2.0) mg/dL Ur Leukocyte Esterase Small H (Negative) Urine RBC 1 (0-5) /hpf Urine WBC 4 (0-5) /hpf Ur Squamous Epith Cells 1 (0-4) /hpf Urine Mucus Rare H (None) /hpf Urine HCG, Qual Detected (Not Detectd) 04/20/20 Range/Units 17:10 WBC (3.8-10.6) k/uL RBC (3.80-5.40) m/uL Hgb (11.4-16.0) gm/dL Hct (34.0-46.0) % MCV (80.0-100.0) fL MCH (25.0-35.0) pg MCHC (31.0-37.0) g/dL RDW (11.5-15.5) % Plt Count (150-450) k/uL Neutrophils % % Lymphocytes % % Monocytes % % Eosinophils % % Basophils % % Neutrophils # (1.3-7.7) k/uL Lymphocytes # (1.0-4.8) k/uL Monocytes # (0-1.0) k/uL Eosinophils # (0-0.7) k/uL Basophils # (0-0.2) k/uL Sodium 138 (137-145) mmol/L Potassium 4.2 (3.5-5.1) mmol/L Chloride 105 (98-107) mmol/L Carbon Dioxide 24 (22-30) mmol/L Anion Gap 9 mmol/L BUN 19 H (7-17) mg/dL Creatinine 0.82 (0.52-1.04) mg/dL Est GFR (CKD-EPI)AfAm >90 (>60 ml/min/1.73 sqM) Est GFR (CKD-EPI)NonAf >90 (>60 ml/min/1.73 sqM) Glucose 92 (74-99) mg/dL Calcium 9.5 (8.4-10.2) mg/dL Total Bilirubin 0.4 (0.2-1.3) mg/dL AST 33 (14-36) U/L ALT 22 (4-34) U/L Alkaline Phosphatase 103 (38-126) U/L Total Protein 7.6 (6.3-8.2) g/dL Albumin 4.4 (3.5-5.0) g/dL Urine Color Urine Appearance (Clear) Urine pH (5.0-8.0) Ur Specific [place] (1.001-1.035) Urine Protein (Negative) Urine Glucose (UA) (Negative) Urine Ketones (Negative) Urine Blood (Negative) Urine Nitrite (Negative) Urine Bilirubin (Negative) Urine Urobilinogen (<2.0) mg/dL Ur Leukocyte Esterase (Negative) Urine RBC (0-5) /hpf Urine WBC (0-5) /hpf Ur Squamous Epith Cells (0-4) /hpf Urine Mucus (None) /hpf Urine HCG, Qual (Not Detectd) Disposition Clinical Impression: Abdominal pain, Disposition: HOME SELF-CARE Condition: Stable Instructions (If sedation given, give patient instructions): Abdominal Pain (ED) Additional Instructions: Please return to the Emergency Department if symptoms worsen or any other concerns. Follow-up with PCP or STRIP POLISHER. Trial of Tylenol, Gas-X for symptom. Is patient prescribed a controlled substance at d/c from ED?: No Referrals: Farhad Mcrae MD [Primary Care Provider] - 1-2 days
--- NOTE | 2020-04-20 19:41 | US ---
EXAMINATION TYPE: US abdomen limited DATE OF EXAM: 04/20/2020 COMPARISON: NONE CLINICAL HISTORY: upper abdominal pain. Abdominal pain x 5-6 days. Worse today. Hx cholecystectomy, d ouble right ureter. EXAM MEASUREMENTS: Spleen: 11.6 cm Left Kidney: 12.8 x 5.7 x 5.6 cm *Limited due to patient body habitus, overlying bowel gas, and rib shadowing. 1. Spleen: No abnormalities seen at this time. 2. Left Kidney: No hydronephrosis or masses seen. Measures upper limits of normal versus enlarged. IMPRESSION: No evidence of splenic mass. No hydronephrosis of left kidney. No evidence of left renal mass. No ascites.
[2020-04-20 19:54] VITALS: BP 111/62; PULSE 69
== END 2020-04-20 19:54 | disposition home or self-care (01) ==
LOC: EC 16:15
DX: O99.89 Other specified diseases and conditions complicating pregnancy, childbirth and the puerperium (principal); R10.13 Epigastric pain; K21.9 Gastro-esophageal reflux disease without esophagitis; Z79.899 Other long term (current) drug therapy; Z87.891 Personal history of nicotine dependence; Z90.49 Acquired absence of other specified parts of digestive tract
CPT/HCPCS: 36415; 76705; 80053; 81001; 81025; 85025; 99284

== ENCOUNTER 2020-12-07 10:02 | Inpatient (IN) | payer OTHER ==
[2020-12-03 15:59] VITALS: BMI 36.9
[2020-12-07] MEDS ORDERED: CITRIC ACID-SODIUM CITRATE 15 ML CUP PO ONE (10:19)
[2020-12-07] MEDS ORDERED: LACTATED RINGERS 1,000 ML IV ONE (10:37)
[2020-12-07 10:58] LABS: Basophils % (A) 0 %; Eosinophils % (A) 0 %; HCT 33.1 % (34.0-46.0); HGB 11.3 gm/dL (11.4-16.0); Lymphocytes # (A) 1.7 k/uL (1.0-4.8); Lymphocytes % (A) 16 %; MCHC 34.1 g/dL (31.0-37.0); Mean Platelet Volume 7.2; Monocytes # (A) 0.5 k/uL (0-1.0); Monocytes % (A) 4 %; Neutrophils # (A) 8.3 k/uL (1.3-7.7); Neutrophils % (A) 78 %; Platelet Count 229 k/uL (150-450); RBC 3.76 m/uL (3.80-5.40); RDW 13.2 % (11.5-15.5); WBC 10.6 k/uL (3.8-10.6)
[2020-12-07] MEDS ORDERED: OXYTOCIN 10 UNIT/ML 1 ML VIAL ONE (12:12)
[2020-12-07] MEDS ORDERED: PHENYLEPHRINE 10 MG/ML VIAL ONE (12:12)
[2020-12-07] MEDS ORDERED: fentaNYL (PF) 50 MCG/ML 2 ML AMP ONE (12:12)
[2020-12-07] MEDS ORDERED: KETOROLAC 15 MG/ML 1 ML VIAL ONE (12:12)
[2020-12-07] MEDS ORDERED: PROPOFOL 10 MG/ML 20 ML VIAL IV ONE (12:12)
[2020-12-07] MEDS ORDERED: ONDANSETRON 4 MG/2 ML VIAL ONE (12:12)
[2020-12-07] MEDS ORDERED: HYDROmorphone (PF) 1 MG/ML ONE (12:12)
[2020-12-07] MEDS ORDERED: SUCCINYLCHOLINE CHLORIDE 100 MG/5 ML SYR IV ONE (12:12)
[2020-12-07] MEDS ORDERED: diphenhydrAMINE 50 MG CAP PO PRN (12:59)
[2020-12-07] MEDS ORDERED: KETOROLAC 15 MG/ML 1 ML VIAL IVP PRN (12:59)
[2020-12-07] MEDS ORDERED: diphenhydrAMINE 25 MG CAP PO PRN (12:59)
[2020-12-07] MEDS ORDERED: diphenhydrAMINE 50 MG/ML 1 ML VIAL IVP PRN ×2 (12:59)
[2020-12-07] MEDS ORDERED: ONDANSETRON 4 MG/2 ML VIAL IVP PRN (12:59)
[2020-12-07] MEDS ORDERED: METOCLOPRAMIDE 5 MG/ML 2 ML VIAL IVP PRN (12:59)
[2020-12-07] MEDS ORDERED: ACETAMINOPHEN TAB 325 MG TAB PO PRN (12:59)
[2020-12-07] MEDS ORDERED: NALOXONE 0.4 MG/ML 1 ML VIAL IV PRN ×2 (12:59→13:43)
[2020-12-07] MEDS ORDERED: ZOLPIDEM 5 MG TAB PO PRN (12:59)
[2020-12-07] MEDS ORDERED: MEASLES-MUMPS-RUBELLA VACC/PF 12,500 UNIT/0.5 ML VIAL SQ ONE (12:59)
--- NOTE | 2020-12-07 13:03 | P.HPOB ---
History of Present Illness H&P Date: 12/07/20 Chief Complaint: at term: Prior section: Arnold-Chiari Patient is a 25-year-old G3 at 39 weeks gestation arise for repeat section due to Arnold-Chiari malformation. This has also been, complicated by JKa antibody during the . We have coordinated with maternal medicine and this has been very coordinated in care nonstress test and going since 32 weeks and she's had multiple biophysical profiles and ultrasounds for size QUESTIONS ARE ANSWERED FOR HER AT THIS TIME PRIOR TO PROCEEDING TO SECTION. RISKS/BENEFITS/ALTERNATIVES WERE REVIEWED WITH THE PATIENT IN DETAIL AND ALL QUESTIONS WERE ANSWERED FOR HER PRIOR TO PROCEEDING. 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 History of Any Multi-Drug Resistant Organisms: None Reported Past Surgical History: Section, Cholecystectomy, Orthopedic Surgery Additional Past Surgical History / Comment(s): COLONOSCOPY, ORIF left elbow Past Anesthesia/Blood Transfusion Reactions: No Reported Reaction, Family History of Problems w/ Anesthesia Additional Past Anesthesia/Blood Transfusion Reaction / Comment(s): STATES HER MOTHER STOPPED BREATHING Past Psychological History: Anxiety, Depression Smoking Status: Former smoker Past Alcohol Use History: None Reported Additional Past Alcohol Use History / Comment(s): QUIT SMOKING 3 YRS AGO., SMOKED FOR 1 YEAR. Past Drug Use History: Marijuana Additional Drug Use History / Comment(s): not currently during - Past Family History Mother Family Medical History: No Reported History Medications and Allergies Home Medications Medication Instructions Recorded Confirmed Type Pnv No.95/Ferrous Fum/Folic AC 1 each PO DAILY 12/03/20 12/07/20 History [ Multivitamin Tablet] Allergies Allergy/AdvReac Type Severity Reaction Status Date / Time No Known Allergies Allergy Verified 12/07/20 10:19 Exam Osteopathic Statement: *. No significant issues noted on an osteopathic structural exam other than those noted in the History and Physical/Consult. Vital Signs Temp Pulse Resp BP Pulse Ox 12/07/20 10:18 96.7 F L 86 16 125/77 99 Intake and Output 12/06/20 12/07/20 12/07/20 22:59 06:59 14:59 Other: Weight 107.048 kg - OBG Physical Exam Breast: both: normal (no masses) Abdomen: bowel sounds normal, no diffuse tenderness, no bruit present, no guarding noted, no hepatomegaly, no splenomegaly, no mass Vulva: both: normal Vagina: normal moisture, no discharge Cervix: no lesion, no discharge Uterus: normal size, normal contour Adnexa: both: normal Anus/Rectum: normal perianal skin, no rectal mass, no hemorrhoids, heme negative Results Result Diagrams: 12/07/20 10:36 Abnormal Lab Results - Last 24 Hours (Table) 12/07/20 Range/Units 10:36 RBC 3.76 L (3.80-5.40) m/uL Hgb 11.3 L (11.4-16.0) gm/dL Hct 33.1 L (34.0-46.0) % Neutrophils # 8.3 H (1.3-7.7) k/uL
--- NOTE | 2020-12-07 13:07 | P.OP ---
Date of Procedure: 12/07/20 Preoperative Diagnosis: Intrauterine at term: Prior section: Arnold-Chiari mouth reformation Postoperative Diagnosis: Same Procedure(s) Performed: Repeat low transverse section Anesthesia: SONDRA Surgeon: Carlos Enrique Rojas Anger Control Counselor #1: Gulshan Yang Estimated Blood Loss (ml): 600 IV fluids (ml): 1,000 Urine output (ml): 100 Pathology: none sent Condition: stable Disposition: floor Operative Findings: Female 's of 8 and 9 at one and 5 minutes respectively and the weight was 6 lbs. 0 oz. Description of Procedure: Patient was taken to the operating suite where a general anesthetic was found be adequate. She was prepped and draped in normal sterile fashion and placed in dorsal supine position. Initially a Pfannenstiel skin incision was made and this incision was then carried through to the underlying layer of the fashion with the second knife. Fascia was then nicked in the midline and this opening was extended laterally with Ramirez scissors. Superior and inferior aspect of this incision were then grasped tented up and bluntly and sharply dissected off the rectus muscles. Rectus muscles were then divided midline and blunt dissection the peritoneum was made. This opening was then extended superiorly and inferiorly with good visualization of both bowel bladder. Bladder blade was then placed in the bladder flap identified. It was entered with Metzenbaum scissors and carried across face uterus and then bluntly dissected out of the operative field. Knife was then used to incise uterus and this incision was then fully developed with a hemostat and then extended bluntly. Head was then H medically delivered and then anterior posterior shoulders were easily delivered with gentle downward upper traction. Once baby was fully delivered mouth nares were bulb suctioned and nursery personnel was present to assume care. The cord was then clamped cut usual fashion. Placenta was then delivered intact Pitocin was added to the IV. Uterus was then exteriorized cleared of clots and debris and closed in 2 layers with 0 Vicryl suture. Once excellent hemostasis was obtained blood and debris was suctioned from the posterior cul-de-sac and the uterus was reinserted the abdomen. Perineal layer was then closed with 3-0 Vicryl. Fascial layer was closed with 0 Vicryl suture. One layer of 3-0 Vicryl was placed in the deep subcuticular tissues to reapproximate skin and close space. Skin was then closed hip particularly with 3-0 Vicryl. Sponge, lap, needle counts were all correct 2. Patient was then taken to the recovery room in stable and satisfactory condition.
[2020-12-07] MEDS ORDERED: HYDROmorphone PCA 10 MG/50 ML BAG IV PRN (13:43)
[2020-12-07] MEDS: LACTATED RINGERS 1,000 ML IV SCH ×4 (15:51→22:40)
[2020-12-07] MEDS: SENNOSIDES-DOCUSATE SODIUM 1 EACH TAB PO SCH (21:05)
[2020-12-08] MEDS: LACTATED RINGERS 1,000 ML IV SCH (06:26)
[2020-12-08 06:54] LABS: Basophils % (A) 0 %; Eosinophils % (A) 0 %; HCT 29.5 % (34.0-46.0); HGB 9.9 gm/dL (11.4-16.0); Lymphocytes # (A) 1.9 k/uL (1.0-4.8); Lymphocytes % (A) 24 %; MCH 29.8 pg (25.0-35.0); MCHC 33.6 g/dL (31.0-37.0); MCV 88.6 fL (80.0-100.0); Mean Platelet Volume 7.6; Monocytes # (A) 0.4 k/uL (0-1.0); Monocytes % (A) 6 %; Neutrophils # (A) 5.3 k/uL (1.3-7.7); Neutrophils % (A) 69 %; Platelet Count 217 k/uL (150-450); RBC 3.33 m/uL (3.80-5.40); RDW 13.4 % (11.5-15.5); WBC 7.7 k/uL (3.8-10.6)
[2020-12-08] MEDS: SENNOSIDES-DOCUSATE SODIUM 1 EACH TAB PO SCH ×2 (08:03→23:03)
--- NOTE | 2020-12-08 08:28 | P.PNOBGPC ---
Subjective - Subjective Principal diagnosis: Postop day 1 Interval history: Patient is doing very well postop day 1. She is ambulating, voiding and tolerating her diet. She voices no complaints other than being tired. We'll plan to discontinue [employer] G[employer] TRADER switch her over to oral pain medicine and increase her diet. All the questions are answered for her at this time. Patient reports: Reports appetite normal, Reports voiding normally, Reports pain well controlled, Reports ambulating normally : doing well Objective - Vital Signs Latest vital signs: Vital Signs Temp Pulse Pulse Resp BP Pulse Ox 12/08/20 08:00 98.1 F 85 16 127/67 98 12/08/20 04:00 98.7 F 85 16 94/57 12/08/20 00:00 98.6 F 61 16 95/68 100 12/07/20 20:00 98.0 F 69 16 115/73 12/07/20 15:00 69 16 114/57 100 12/07/20 14:30 66 16 109/68 100 12/07/20 14:00 69 16 97/53 100 12/07/20 13:45 65 16 111/66 100 12/07/20 13:44 100 12/07/20 13:30 71 16 121/71 100 12/07/20 13:15 78 16 118/63 98 12/07/20 13:00 96.1 F L 79 16 117/66 100 12/07/20 10:18 96.7 F L 86 16 125/77 99 Intake and Output 12/07/20 12/08/20 12/08/20 22:59 06:59 14:59 Output Total 400 1200 Balance -400 -1200 Output: Urine 400 1200 Uretheral ([place]) 300 Other: # Voids 1 - Exam Lungs: bilateral: normal Chest: Normal S1, Normal S2 Extremities: Present: normal Abdomen: Present: normal appearance, soft. Absent: distention, tenderness Incision: Present: normal, dry, intact Uterus: Present: normal, firm - Labs Labs: Abnormal Lab Results - Last 24 Hours (Table) 12/07/20 12/08/20 Range/Units 10:36 06:12 RBC 3.76 L 3.33 L (3.80-5.40) m/uL Hgb 11.3 L 9.9 L (11.4-16.0) gm/dL Hct 33.1 L 29.5 L (34.0-46.0) % Neutrophils # 8.3 H (1.3-7.7) k/uL
[2020-12-08] MEDS: HYDROcodone/APAP 7.5-325MG 1 EACH TAB PO PRN ×3 (10:06→23:02)
[2020-12-08] MEDS: IBUPROFEN 600 MG TAB PO PRN ×2 (11:40→18:31)
[2020-12-09] MEDS: IBUPROFEN 600 MG TAB PO PRN (05:07)
--- NOTE | 2020-12-09 08:32 | P.DS ---
Providers Date of admission: 12/07/20 10:02 Expected date of discharge: 12/09/20 Attending physician: Carlos Enrique Rojas Primary care physician: Stated None Hospital Course: Patient is doing very well postop day 2. She is ambulating, voiding, and she is tolerating her diet. She voices no complaints. Vital signs are stable and afebrile. Heart regular, lungs clear, extremities are without pain. Abdomen is soft her incision is otherwise clean dry and intact. There is some bruising around the incision but otherwise no other findings. She is requesting discharge home today. Prescription for Motrin and [place] reported to the pharmacy and all the questions are answered for her prior to discharge. Discharge instructions are thoroughly reviewed she is stable for discharge this time. Patient Condition at Discharge: Good Plan - Discharge Summary Discharge Rx Participant: No New Discharge Prescriptions: New Ibuprofen [Motrin] 600 mg PO Q6HR PRN #30 tab PRN Reason: Pain HYDROcodone/APAP 5-325MG [[place] 5-325] 1 tab PO Q4HR PRN #30 tab PRN Reason: Pain No Action Pnv No.95/Ferrous Fum/Folic AC [ Multivitamin Tablet] 1 each PO DAILY Discharge Medication List Pnv No.95/Ferrous Fum/Folic AC [ Multivitamin Tablet] 1 each PO DAILY 12/03/20 [History] HYDROcodone/APAP 5-325MG [[place] 5-325] 1 tab PO Q4HR PRN #30 tab 12/09/20 [Rx] Ibuprofen [Motrin] 600 mg PO Q6HR PRN #30 tab 12/09/20 [Rx] Follow up Appointment(s)/Referral(s): Carlos Enrique Rojas DO [Doctor of Osteopathic Medicine] - 1 Week Activity/Diet/Wound Care/Special Instructions: Heavy lifting, limit stairs and driving, and pelvic rest. If any high te mperatures, heavy bleeding, or severe pain call my office Discharge Disposition: HOME SELF-CARE
[2020-12-09] MEDS: HYDROcodone/APAP 7.5-325MG 1 EACH TAB PO PRN (09:05)
[2020-12-09] MEDS: SENNOSIDES-DOCUSATE SODIUM 1 EACH TAB PO SCH (09:05)
[2020-12-09 09:46] VITALS: BP 104/70; PULSE 71; RESP 15; TEMP 98
== END 2020-12-09 13:50 | disposition home or self-care (01) | DRG 788 ==
LOC: 4FBP 10:02
PROVIDERS: ADMIT Obstetrics & Gynecology; ATTEND Obstetrics & Gynecology
PROC: 10D00Z1 Extraction of Products of Conception, Low, Open Approach (ICD-10-PCS; principal; 2020-12-07 12:00)
DX: O99.344 Other mental disorders complicating childbirth (principal); O34.211 Maternal care for low transverse scar from previous cesarean delivery; F41.9 Anxiety disorder, unspecified; F32.9 Major depressive disorder, single episode, unspecified; O99.62 Diseases of the digestive system complicating childbirth; K21.9 Gastro-esophageal reflux disease without esophagitis; Z37.0 Single live birth; Z3A.39 39 weeks gestation of pregnancy; Z87.440 Personal history of urinary (tract) infections; Z87.891 Personal history of nicotine dependence; Q07.00 Arnold-Chiari syndrome without spina bifida or hydrocephalus; Z90.49 Acquired absence of other specified parts of digestive tract
CPT/HCPCS: 85025; 86850; 86870; 86880; 86900; 86901; 86902

== ENCOUNTER → 2021-07-27 | Outpatient (CLI) | payer OTHER ==
--- NOTE | 2021-08-02 09:14 | MR ---
MR brain HISTORY: Q07.00 arnold chiari Multiplanar multisequence imaging through the brain, correlation to prior MRI brain dated 06/27/2016 There is no restricted diffusion. Brain signal is maintained. There is no hemorrhage or hydrocephalus . Cerebellar tonsils extend inferior from the foramen magnum as on prior exam, approximately 5.3 mm. Corpus callosum, pituitary, cerebellopontine angles are normal. There are expected vascular flow void s. Orbits are intact. Paranasal sinuses and mastoid air cells are well aerated. IMPRESSION: Inferior cerebellar tonsillar ectopia.
== END | disposition home or self-care (01) ==
LOC: RADMRIMAIN 08:27
PROVIDERS: ATTEND Family Medicine
DX: Q04.8 Other specified congenital malformations of brain (principal)
CPT/HCPCS: 70551